=== PATIENT | female | born 1950 | race Caucasian/White ===

== ENCOUNTER 2017-03-10 10:53 | Outpatient (CLI) | payer MEDICARE, OTHER | END 2017-03-10 10:54 | disposition home or self-care (01) | DRG 554 | LOC: CONVCARE 10:53 | PROVIDERS: ATTEND Orthopaedic Surgery | DX: M17.0 Bilateral primary osteoarthritis of knee (principal) | CPT/HCPCS: 73564 ==

== ENCOUNTER 2018-05-25 14:27 | Outpatient (CLI) | payer MEDICARE, OTHER | END 2018-05-25 14:28 | disposition home or self-care (01) | DRG 552 | LOC: CONVCARE 14:27 | PROVIDERS: ATTEND Orthopaedic Surgery | DX: M54.5 Low back pain (principal); M25.511 Pain in right shoulder; M75.91 Shoulder lesion, unspecified, right shoulder; M12.88 Other specific arthropathies, not elsewhere classified, other specified site | CPT/HCPCS: 72120 ==

== ENCOUNTER 2019-06-07 13:05 | Outpatient (CLI) | payer BC | END 2019-06-07 13:06 | disposition home or self-care (01) | LOC: CONVCARE 13:06 ==